=== PATIENT | female | born 1975 | race Caucasian/White ===

== ENCOUNTER → 2020-01-28 | Outpatient (CLI) | payer OTHER ==
[2020-01-28 12:42] LABS: Basophils # (A) 0.1 k/uL (0-0.2); Basophils % (A) 1 %; Eosinophils # (A) 0.4 k/uL (0-0.7); Eosinophils % (A) 7 %; HGB 15.6 gm/dL (11.4-16.0); Lymphocytes # (A) 1.9 k/uL (1.0-4.8); Lymphocytes % (A) 29 %; MCH 34.6 pg (25.0-35.0); MCHC 32.5 g/dL (31.0-37.0); MCV 106.6 fL (80.0-100.0); Macrocytosis Moderate; Mean Platelet Volume 10.2; Monocytes # (A) 0.3 k/uL (0-1.0); Monocytes % (A) 5 %; Neutrophils # (A) 3.8 k/uL (1.3-7.7); Neutrophils % (A) 58 %; Platelet Count 142 k/uL (150-450); RDW 13.4 % (11.5-15.5); WBC 6.6 k/uL (3.8-10.6)
[2020-01-28 13:07] LABS: Potassium 4.4 mmol/L (3.5-5.1)
== END | disposition home or self-care (01) ==
LOC: LABPAT 11:34
PROVIDERS: ATTEND Orthopaedic Surgery
DX: Z01.818 Encounter for other preprocedural examination (principal); M23.91 Unspecified internal derangement of right knee
CPT/HCPCS: 80051; 85025

== ENCOUNTER → 2020-01-31 | Day surgery (SDC) | payer OTHER ==
[2020-01-30 08:45] VITALS: BMI 32.4
--- NOTE | 2020-01-30 14:17 | HP ---
HISTORY AND PHYSICAL DATE OF SURGERY: 01/31/2020 Chanel Estrada is a 44-year-old patient seen with progressive right knee pain. We discussed options regarding treatment. She elected to proceed with arthroscopy. Consent was obtained. PAST MEDICAL HISTORY: Noncontributory. PAST SURGICAL HISTORY: Appendectomy, cholecystectomy, knee arthroscopy. DAILY MEDICATIONS: None. ALLERGIES: BACTRIM and SULFA. SOCIAL HISTORY: Smokes 1 pack of cigarettes daily. PHYSICAL EVALUATION OF THE RIGHT KNEE: Range of motion is 0-130. Mild effusion. Tenderness along the medial and lateral joint lines. Positive medial Juana's. Positive lateral Juana's. Ligaments stable. Hip rotation without pain. Distal neurovascular exam is intact. Right knee radiographs reveal mild osteoarthritis. IMPRESSION: 1. Internal derangement right knee with medial meniscal tear. 2. Right knee osteoarthritis. 3. Tobacco use. PLAN: Right knee arthroscopy with partial meniscectomy, partial synovectomy and debridement. MMODL / IJN: [id number] /
[~2020-01-31] MED LIST: BUPIVACAINE (PF) 0.25% 30 ML VIAL SQ ONE; CLINDAMYCIN 900 MG in DEXTROSE 5% IN WATER 50 ML IVPB ONE; DEXAMETHASONE SOD PHOSPHATE 10 MG/ML 1 ML VIAL IV ONE; LACTATED RINGERS 1,000 ML IV ONE; LACTATED RINGERS 1,000 ML IV SCH; LIDOCAINE 1% INJ 10MG/ML (20 ML MDV) ONE; MIDAZOLAM 2 MG/2 ML VIAL ONE; ONDANSETRON 4 MG/2 ML VIAL IVP ONE; PROPOFOL 10 MG/ML 20 ML VIAL IV ONE; SUCCINYLCHOLINE CHLORIDE 100 MG/5 ML SYR IV ONE; fentaNYL (PF) 50 MCG/ML 2 ML AMP ONE; oxyCODONE-APAP 5-325MG 1 EACH TAB PO ONE
--- NOTE | 2020-01-31 10:41 | P.OP ---
Date of Procedure: 01/31/20 Preoperative Diagnosis: Internal derangement right knee Postoperative Diagnosis: 1. Tear lateral meniscus right knee 2. 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 Grade 2 chondromalacia patella right knee 4. Reactive synovitis medial, lateral and suprapatellar compartments right knee Procedure(s) Performed: 1. Arthroscopic partial lateral meniscectomy right knee 2. Arthroscopic chondroplasty lateral femoral condyle right knee 3. Arthroscopic chondroplasty patella right knee 4. Arthroscopic partial synovectomy medial, lateral and suprapatellar compartments right knee Anesthesia: THERESAA, local Surgeon: Evangelista Paul Estimated Blood Loss (ml): 7 Pathology: none sent Condition: stable Disposition: PACU Indications for Procedure: 44-year-old patient seen with progressive right knee pain. After having treatment options discussed, she elected to proceed with arthroscopy. Operative Findings: See description of procedure Description of Procedure: Patient was taken to the operative suite. Patient underwent a general anesthetic by the department of anesthesia. Patient was given preoperative antibiotics. The right lower extremity was placed in a well-padded arthroscopic leg fisher. The right leg was prepped and draped in the normal sterile orthopedic fashion. A lateral parapatellar and suprapatellar incision was made. Trochars were inserted. Arthroscopy was initiated. Suprapatellar pouch revealed diffuse thick reactive synovitis. The patellofemoral joint appeared to articulate congruently. There was grade 2 chondromalacia of the patella with some small osteochondral tears present. The scope was guided into the medial gutter. No loose bodies or plica were identified. The scope was then guided into the medial compartment. A medial parapatellar incision was made. Trocar inserted followed by probe. The medial meniscus was probed and found to be stable. There was no significant chondromalacia. There was thick reactive synovitis anteriorly. I performed a partial synovectomy decompressing the thick reactive synovitis. There was good decompression of synovitis. Scope and probe were then guided into the intercondylar notch. Cruciates were identified, probed and found to be stable. The scope and probe were then guided into lateral compartment. There was a complex tear posterior horn medial meniscus extending into the midbody. There were grade 2 chondromalacia changes of the femoral condyle with some osteochondral flap tears. There was thick reactive synovitis anteriorly. I performed a partial meniscectomy. I performed a chondroplasty of the lateral femoral condyle. I performed a partial synovectomy decompressing thick reactive synovitis. The residual meniscus was stable. There was good decompression of synovitis. The residual osteochondral surface was stable. The scope was in guided back into the suprapatellar compartment. Used a motorized shaver into the super compartment. I debrided some piecemeal fragments of meniscus I encountered. I performed a chondroplasty of the patella. I performed a partial synovectomy. The residual osteochondral surface appeared stable. There was good decompression of synovitis. I took one more look on the entire knee, no residual debris. Instruments were now removed from the joint. The joint was infiltrated with .25% Marcaine. Steri-Strips were applied to the portal sites. Sterile dressings were applied. The patient was placed into a TEETEE hose. No tourniquet was utilized. The patient was awakened, transferred to a bed and taken to recovery stable satisfactory condition.
[2020-01-31 10:42] VITALS: TEMP 97.4
[2020-01-31] MEDS: HYDROmorphone 0.5 MG/0.5 ML SYRINGE IVP PRN ×3 (10:50→11:00)
[2020-01-31 11:08] VITALS: RESP 16
[2020-01-31 11:57] VITALS: BP 132/92; PULSE 66
--- NOTE | 2020-02-04 07:04 | CDI ---
Outpatient Documentation Clarification Form Date: 02/04/20 CDS/Shellacker Name: Dyan Williamson Phone: If any questions, call Tamra Martinez Manager New Product at [phone] Patient Name: Chanel Estrada Admit Date: 01/31/20 Discharge Date: 01/31/20 ATTENTION: The [facility] Coding Staff appreciate your assistance in clarifying documentation. Please respond to the clarification below the line at the bottom and electronically sign. The [facility] Coding staff will review the response and follow-up if needed. Please note: Queries are made part of the Legal Health Record. If you have any questions, please contact the Manager New Product. Dear Dr. Paul, Please provide clarification as to the particular meniscus on which the procedure was performed. The procedure note goes back and forth between the lateral and medial meniscus. Please clarify. Thank you for your kind consideration. I performed a partial lateral meniscectomy MTDD
== END | disposition home or self-care (01) ==
LOC: OR 07:56
PROVIDERS: ATTEND Orthopaedic Surgery
DX: S83.281A Other tear of lateral meniscus, current injury, right knee, initial encounter (principal); X58.XXXA Exposure to other specified factors, initial encounter; M22.41 Chondromalacia patellae, right knee; M65.861 Other synovitis and tenosynovitis, right lower leg; M17.11 Unilateral primary osteoarthritis, right knee; Z90.49 Acquired absence of other specified parts of digestive tract; Z98.890 Other specified postprocedural states; Z88.2 Allergy status to sulfonamides; F17.210 Nicotine dependence, cigarettes, uncomplicated; I25.2 Old myocardial infarction; E78.49 Other hyperlipidemia; J45.909 Unspecified asthma, uncomplicated; K21.9 Gastro-esophageal reflux disease without esophagitis; Z79.891 Long term (current) use of opiate analgesic; Z88.1 Allergy status to other antibiotic agents; Z91.040 Latex allergy status; Z88.5 Allergy status to narcotic agent; Z88.0 Allergy status to penicillin; Z88.8 Allergy status to other drugs, medicaments and biological substances; Z91.018 Allergy to other foods
CPT/HCPCS: 81025; 29881; J2250; J1100; J2405; J2001; J3010; J0330; J2704; J1170

== ENCOUNTER → 2020-07-08 | Outpatient (CLI) | payer OTHER ==
--- NOTE | 2020-07-08 08:46 | XR ---
EXAMINATION TYPE: XR cervical spine comp DATE OF EXAM: 07/08/2020 COMPARISON: 03/21/2014 HISTORY: Pain TECHNIQUE: Four views are submitted. FINDINGS: The odontoid is intact. There are no compression deformities. The prevertebral soft tissue structur es are within normal limits. Hypertrophic spurring at C5-C6 and C6-C7 with degenerative disc disease . Slight retrolisthesis of C4 relative to C5. IMPRESSION: 1. Multilevel hypertrophic and degenerative change
== END | disposition home or self-care (01) ==
LOC: RADXRMAIN 08:07
PROVIDERS: ATTEND Internal Medicine
DX: M47.812 Spondylosis without myelopathy or radiculopathy, cervical region (principal)
CPT/HCPCS: 72050

== ENCOUNTER → 2020-09-29 | Outpatient (CLI) | payer OTHER ==
--- NOTE | 2020-09-29 11:01 | US ---
EXAMINATION TYPE: US pelvis complete transvag DATE OF EXAM: 09/29/2020 COMPARISON: NONE CLINICAL HISTORY: 45-year-old female R10.2 female pelvic pain. Patient states her doctor told her kalli t her uterus was torn TECHNIQUE: Transabdominal sonographic images of the pelvis were acquired. Transvaginal sonographic i mages were medically necessary to better assess the following anatomy: Uterus Date of LMP: Unsure FINDINGS: EXAM MEASUREMENTS: Uterus: 6.8 x 2.9 x 2.7 cm Endometrial Stripe: 0.3 cm Right Ovary: 1.6 x 1.5 x 1.7 cm Left Ovary: 2.4 x 1.6 x 1.5 cm 1. Uterus: Anteverted. The myometrium is mildly heterogeneous. Rounded cystic area along the left f undus measuring 1.3 x 1.5 x 1.4 cm. In addition, there is an ovoid hypoechoic area along the right ut erine fundus measuring 2.0 x 1.0 x 2.0 cm 2. Endometrium: Unable to visualize transvaginally . 3. Right Ovary: wnl 4. Left Ovary: Follicle visualized, wnl 5. Bilateral Adnexa: wnl 6. Posterior cul-de-sac: wnl IMPRESSION: 1. A 1.5 cm round cystic area along the left uterine fundus. Unable to clearly determine if this is l ocated within the uterus itself or if it represents a cyst within the left adnexa such as a paraovari an cyst. 2. An ovoid 2.0 x 1.0 cm hypoechoic area within the right uterine fundus. As the endometrium is poorl y delineated, correlate for history of prior endometrial ablation, in which case, this could represen t an area of focal hematometra from incomplete ablation. Consider female pelvic MRI to further evalu ate this and the above cystic area. Consider DIRECTOR OF OCCUPATIONAL HEALTH referral. 3. Normal follicular change in the ovaries.
== END | disposition home or self-care (01) ==
LOC: RADUSWWP 08:53
PROVIDERS: ATTEND Internal Medicine
DX: N85.8 Other specified noninflammatory disorders of uterus (principal); Z88.1 Allergy status to other antibiotic agents; Z88.6 Allergy status to analgesic agent; Z88.5 Allergy status to narcotic agent; Z91.040 Latex allergy status
CPT/HCPCS: 76830; 76856

== ENCOUNTER → 2020-11-27 | Outpatient (CLI) | payer OTHER ==
--- NOTE | 2020-11-28 04:42 | MR ---
EXAMINATION TYPE: MR pelvis wo con DATE OF EXAM: 11/27/2020 COMPARISON: None HISTORY: Lower abd pain into pelvis History of cervical cancer. Previous surgery. Multiplanar multiecho imaging of the pelvis was performed without contrast. Bladder distends smoothly. Uterus is anteverted. There is 1.3 cm area of rounded fluid signal in the uterine fundus in the myometrium that could be a cyst and is probably not changed compared to the old CT scan of 12/13/2011. I see no endometrial mass. Vaginal vault is intact. Cervical canal is intact. There is tiny amount of free fluid in the pelvis. There is no adnexal mass. The bowel does not appear dilated. There is no evidence of inguinal hernia. The proximal femurs and hip joints are intact. The re is no hip dysplasia. There is no sign of avascular necrosis. There is metal artifact from apparent surgery at the lumbar spine at the L4-5 level on the left side. There is some narrowing of the L5-S1 disc space with decreased signal in the disks. The sacroiliac joints appear intact. There is 1.7 cm area of rounded increased signal in the S2 vertebral body. This is not characterized or visualized on the STIR images on the T1 images. This is of doubtful significance. IMPRESSION: There is small amount of fluid in the pelvis. No pelvic mass. No definite sign of recurrent tumor.
== END | disposition home or self-care (01) ==
LOC: RADMRIMAIN 09:19
PROVIDERS: ATTEND Obstetrics & Gynecology
DX: R10.30 Lower abdominal pain, unspecified (principal)
CPT/HCPCS: 72195

== ENCOUNTER 2021-09-11 15:57 | Emergency (ER) | payer OTHER ==
[2021-09-11] MEDS ORDERED: HYDROmorphone 1 MG/ML 1 ML SYRINGE IVP STA ×2 (16:22→17:12)
[2021-09-11] MEDS ORDERED: ONDANSETRON 4 MG/2 ML VIAL IVP STA (16:22)
--- NOTE | 2021-09-11 16:35 | ED ---
Lower Extremity Injury HPI - General Chief Complaint: Extremity Injury, Lower Stated Complaint: Fall/IHS/Foot injury Time Seen by Provider: 09/11/21 16:13 Source: patient, RN notes reviewed Mode of arrival: wheelchair Limitations: no limitations - History of Present Illness Initial Comments: This is a pleasant 46-year-old female who presents to emergency department after injuring her ankle yesterday with a slip and fall at work. [facility] and had a fracture in 2 spots. Patient had an OCL splint placed. Patient elevated her leg yesterday but went to work today. Patient now complaining of tingling and burning sensation to her toes were discolored toes. Patient also complaining of increased pain to her ankle area. Patient contacted the follow-up orthopedic physician at Dr. Simpson's office and was advised to come to this facility because we have a "video conference specialist." No headache, no fever or chills, no changes in vision or hearing, no sore throat or difficulty with speech, no neck pain, no chest pain or shortness of breath, no abdominal pain, no nausea or vomiting, no changes in urination or bowel movements, no numbness or tingling, no extremity pain, no skin rashes or lesions. MD Complaint: ankle injury - Related Data Home Medications Medication Instructions Recorded Confirmed Naloxone [Narcan] 1 spray NASAL ONCE PRN 09/11/21 09/11/21 oxyCODONE-APAP 7.5-325MG [Percocet 1 tab PO Q6HR PRN 09/11/21 09/11/21 7.5-325 mg] Allergies Allergy/AdvReac Type Severity Reaction Status Date / Time amitriptyline Allergy Hallucinati Verified 09/11/21 18:19 ons amoxicillin Allergy Swelling Verified 09/11/21 18:19 cephalexin monohydrate Allergy Rash/Hives Verified 09/11/21 18:19 [From Keflex] codeine Allergy Swelling Verified 09/11/21 18:19 latex Allergy Rash/Hives Verified 09/11/21 18:19 methadone Allergy Swelling Verified 09/11/21 18:19 morphine Allergy Chest Pain Verified 09/11/21 18:19 Penicillins Allergy Rash/Hives Verified 09/11/21 18:19 pregabalin [From Lyrica] Allergy Rash/Hives Verified 01/21/22 18:19 Sulfa (Sulfonamide Allergy Rash/Hives Verified 09/11/21 18:19 Antibiotics) mushrooms Allergy Anaphylaxis Uncoded 09/11/21 16:02 Review of Systems ROS Statement: Those systems with pertinent positive or pertinent negative responses have been documented in the HPI. ROS Other: All systems not noted in ROS Statement are negative. Past Medical History Past Medical History: Asthma, Hyperlipidemia, Myocardial Infarction (CT), Thyroid Disorder Additional Past Medical History / Comment(s): chronic back pain, degenerative disc disease, uses medical marijuana Last Myocardial Infarction Date:: 2012 History of Any Multi-Drug Resistant Organisms: None Reported Past Surgical History: Appendectomy, Back Surgery, Breast Surgery, Cholecystectomy, Orthopedic Surgery, Tonsillectomy, Tubal Ligation Past Anesthesia/Blood Transfusion Reactions: No Reported Reaction Past Psychological History: Anxiety, Depression Smoking Status: Current every day smoker Past Alcohol Use History: None Reported, Rare Past Drug Use History: Marijuana - Past Family History Mother Family Medical History: No Reported History General Exam - General Exam Comments Initial Comments: Patient in significant distress secondary to right ankle pain Limitations: no limitations General appearance: alert, in distress Head exam: Present: atraumatic, normocephalic, normal inspection Eye exam: Present: normal appearance, PERRL, EOMI. Absent: scleral icterus, conjunctival injection, periorbital swelling ENT exam: Present: normal exam, mucous membranes moist Neck exam: Present: normal inspection. Absent: tenderness, meningismus, lymphadenopathy Respiratory exam: Present: normal lung sounds bilaterally. Absent: respiratory distress, wheezes, rales, rhonchi, stridor Cardiovascular Exam: Present: regular rate, normal rhythm, normal heart sounds. Absent: systolic murmur, diastolic murmur, rubs, gallop, clicks GI/Abdominal exam: Present: soft, normal bowel sounds. Absent: distended, tenderness, guarding, rebound, rigid Extremities exam: Present: full ROM, other (Refill 3-4 seconds. Pedal pulses are palpable. Sensation is intact to light touch and pinprick--regarding the right lower extremity, ankle, foot. No break in skin integrity). Absent: normal inspection, tenderness, pedal edema, joint swelling, calf tenderness Back exam: Present: normal inspection Neurological exam: Present: alert, oriented X3, CN II-XII intact Psychiatric exam: Present: normal affect, normal mood, anxious Skin exam: Present: warm, dry, intact, normal color. Absent: rash Course Vital Signs 09/11/21 16:02 Temperature 98.3 F Pulse Rate 118 H Respiratory 20 Rate Blood Pressure 131/79 O2 Sat by Pulse 97 Oximetry - Reevaluation(s) Reevaluation #1: 09/11/21 17:19 No headache, no fever or chills, no changes in vision or hearing, no sore throat or difficulty with speech, no neck pain, no chest pain or shortness of breath, no abdominal pain, no nausea or vomiting, no changes in urination or bowel movements, no numbness or tingling, no extremity pain, no skin rashes or lesions. Procedures - Orthopedic Splinting/Casting Injury #1 Side: right Lower Extremity Injury Location: long leg, ankle Lower Extremity Immobilizer: posterior splint, stirrup splint Other Orthopedic Equipment: crutches Additional Comments: Neurovascular status was intact both pre-and post-application. I did remove the splint from the previous facility. Doppler pulses were intact both dorsalis pedis and posterior tibial. Capillary refill less than 2 seconds. Distal sensation intact. Medical Decision Making - Medical Decision Making Patient has adequate capillary refill with capillary refill between 3 and 4 seconds to the right toes. Sensation is intact although she does have subjective dysesthesia. Pulses are palpated. I did remove the OCL splint. We'll obtain x-rays, lab work, and provide pain medications. We'll obtain pulses by Doppler. - Lab Data Result diagrams: 09/11/21 16:38 09/11/21 16:38 Lab Results 09/11/21 09/11/21 Range/Units 16:38 16:38 WBC 10.9 H (3.8-10.6) k/uL RBC 4.21 (3.80-5.40) m/uL Hgb 14.5 (11.4-16.0) gm/dL Hct 44.7 (34.0-46.0) % MCV 106.2 H (80.0-100.0) fL MCH 34.4 (25.0-35.0) pg MCHC 32.4 (31.0-37.0) g/dL RDW 13.5 (11.5-15.5) % Plt Count 161 (150-450) k/uL MPV 9.6 Neutrophils % 65 % Lymphocytes % 26 % Monocytes % 5 % Eosinophils % 3 % Basophils % 0 % Neutrophils # 7.0 (1.3-7.7) k/uL Lymphocytes # 2.8 (1.0-4.8) k/uL Monocytes # 0.5 (0-1.0) k/uL Eosinophils # 0.3 (0-0.7) k/uL Basophils # 0.0 (0-0.2) k/uL Macrocytosis Moderate Sodium 138 (137-145) mmol/L Potassium 3.8 (3.5-5.1) mmol/L Chloride 104 (98-107) mmol/L Carbon Dioxide 28 (22-30) mmol/L Anion Gap 6 mmol/L BUN 19 H (7-17) mg/dL Creatinine 0.77 (0.52-1.04) mg/dL Est GFR (CKD-EPI)AfAm >90 (>60 ml/min/1.73 sqM) Est GFR (CKD-EPI)NonAf >90 (>60 ml/min/1.73 sqM) Glucose 97 (74-99) mg/dL Calcium 9.2 (8.4-10.2) mg/dL Total Bilirubin 0.6 (0.2-1.3) mg/dL AST 34 (14-36) U/L ALT 32 (4-34) U/L Alkaline Phosphatase 88 (38-126) U/L Creatine Kinase 214 H (30-135) U/L Total Protein 7.0 (6.3-8.2) g/dL Albumin 4.2 (3.5-5.0) g/dL Disposition Clinical Impression: Closed trimalleolar fracture of right ankle Disposition: HOME SELF-CARE Instructions (If sedation given, give patient instructions): Ankle Fracture (ED), Splint Care (ED), Crutch Instructions (ED) Additional Instructions: Call the orthopedic physician first thing Tuesday morning for follow-up appointment. Elevate as much as possible. Keep the splint on. No weightbearing until clearance by orthopedics. Patient was told to return to the ER for any signs or symptoms worsen. Told to return immediately if any other problems arise. All questions answered. Treatment plan discussed. Patient in agreement Is patient prescribed a controlled substance at d/c from ED?: No Referrals: Linda Aldana MD [Primary Care Provider] - 1-2 days Grey Hernandez MD [Medical Doctor] - 09/14/21 8:00 am
[2021-09-11 16:39] VITALS: RESP 20
[2021-09-11 16:41] LABS: Basophils % (A) 0 %; Eosinophils # (A) 0.3 k/uL (0-0.7); Eosinophils % (A) 3 %; HCT 44.7 % (34.0-46.0); HGB 14.5 gm/dL (11.4-16.0); Lymphocytes # (A) 2.8 k/uL (1.0-4.8); Lymphocytes % (A) 26 %; MCH 34.4 pg (25.0-35.0); MCHC 32.4 g/dL (31.0-37.0); MCV 106.2 fL (80.0-100.0); Macrocytosis Moderate; Mean Platelet Volume 9.6; Monocytes # (A) 0.5 k/uL (0-1.0); Monocytes % (A) 5 %; Neutrophils % (A) 65 %; Platelet Count 161 k/uL (150-450); RBC 4.21 m/uL (3.80-5.40); RDW 13.5 % (11.5-15.5); WBC 10.9 k/uL (3.8-10.6)
[2021-09-11 16:49] LABS: ALT 32 U/L (4-34); AST 34 U/L (14-36); African American GFR (CKD) >90 (>60 ml/min/1.73 sqM); Albumin 4.2 g/dL (3.5-5.0); Alkaline Phosphatase 88 U/L (38-126); Anion Gap 6 mmol/L; Blood Urea Nitrogen 19 mg/dL (7-17); Calcium 9.2 mg/dL (8.4-10.2); Carbon Dioxide 28 mmol/L (22-30); Chloride 104 mmol/L (98-107); Creatine Kinase 214 U/L (30-135); Glucose 97 mg/dL (74-99); Non-African American GFR(CKD) >90 (>60 ml/min/1.73 sqM); Potassium 3.8 mmol/L (3.5-5.1); Sodium 138 mmol/L (137-145); Total Bilirubin 0.6 mg/dL (0.2-1.3)
--- NOTE | 2021-09-11 17:03 | XR ---
EXAMINATION TYPE: XR tibia fibula RT DATE OF EXAM: 09/11/2021 COMPARISON: None HISTORY: Ankle pain TECHNIQUE: 3 views FINDINGS: There is transverse fracture of the medial malleolus. There is 3 mm lateral displacement of the fragment. There is oblique fracture of the distal fibula. There is mild lateral subluxation of t he talus. IMPRESSION: Bimalleolar fracture of the ankle with mild lateral displacement of the talus. No old exa m available for comparison. Fracture appears relatively acute.
[2021-09-11] MEDS ORDERED: SODIUM CHLORIDE 0.9% 1,000 ML IV ONE (17:04)
--- NOTE | 2021-09-11 17:05 | XR ---
EXAMINATION TYPE: XR ankle complete RT DATE OF EXAM: 09/11/2021 COMPARISON: NONE HISTORY: Pain TECHNIQUE: 3 views FINDINGS: There is lateral displacement of the talus 4 mm. There is 3 mm lateral displacement of the fractured medial malleolus. There is oblique fracture through the distal fibula. There is probably a nondisplaced posterior malleolus fracture. There is no dislocation. There is soft tissue swelling vesta und the ankle. IMPRESSION: Trimalleolar fracture of the ankle with mild lateral displacement of the talus. No old ex am available for comparison. Fractures appear relatively acute.
[2021-09-11] MEDS ORDERED: LORazepam 2 MG/ML INJ IV STA (17:19)
[2021-09-11 18:57] VITALS: BP 128/78; PULSE 94; TEMP 98
== END 2021-09-11 18:56 | disposition home or self-care (01) ==
LOC: EC 15:57
DX: S82.851A Displaced trimalleolar fracture of right lower leg, initial encounter for closed fracture (principal); J45.909 Unspecified asthma, uncomplicated; I21.9 Acute myocardial infarction, unspecified; F17.200 Nicotine dependence, unspecified, uncomplicated; Z91.018 Allergy to other foods; Z88.1 Allergy status to other antibiotic agents; Z88.0 Allergy status to penicillin; Z91.040 Latex allergy status; Z88.5 Allergy status to narcotic agent; Z88.2 Allergy status to sulfonamides; Z88.8 Allergy status to other drugs, medicaments and biological substances; X58.XXXA Exposure to other specified factors, initial encounter
CPT/HCPCS: 29505; 99283; 96374; 96375; 96376; 36415; 80053; 82550; 85025; 73590; 73610; J2060; J2405; J1170

== ENCOUNTER → 2021-09-18 | Outpatient (CLI) | payer OTHER ==
--- NOTE | 2021-09-18 13:03 | CT ---
EXAMINATION TYPE: CT ankle RT wo con DATE OF EXAM: 09/18/2021 COMPARISON: Radiographs 09/11/2021 HISTORY: 46-year-old female M25.571, fall, Rt ankle pain TECHNIQUE: Contiguous axial scanning of the right ankle without IV contrast. Coronal and sagittal rec onstructions performed. 3-D reconstructions generated on a dedicated independent workstation. CT DLP: 193 mGycm Automated exposure control for dose reduction was used. FINDINGS: Overlying plaster cast. Generalized soft tissue swelling. There is redemonstration of unstable trimalleolar ankle fracture: The posterior malleolus fracture shows comminution along its superior and inferior margin. The commin ution inferiorly is characterized by 5 mm and smaller bone fragments interposed at the articular defe ct and some adjacent tiny 2 mm loose bodies extending into the posterior aspect of the medial tibiota lar joint. There is minimal 2 mm of articular surface impaction. Medially, the posterior tibial tendo n abuts the fracture margin but does not show any abnormal thickening. The medial malleolus fracture is characterized as a transverse fracture with 7 mm of distraction. The distal fibular fracture is obliquely oriented with 5 mm of lateral displacement and up to 1.1 cm of posterior displacement. There is secondary lateral subluxation at the tibiotalar joint. There is a 6 mm corticated bone fragment adjacent to the lateral talar process at the expected ATFL i nsertion. There is diffuse soft tissue thickening along the expected course of the ATFL. This could r epresent acute on chronic ligamentous sprain. Additional corticated bone fragments measuring up to 7 mm may relate to old injuries at the site of s ome plantar ligaments or one of the spring ligaments. Bony irregularity along the anterior calcaneal process has a chronic appearance suggesting sequela of remote injury. Technique type I accessory navicular. Subtalar joint is aligned. Small delineation of the Achilles tendon. IMPRESSION: 1. UNSTABLE TRIMALLEOLAR ANKLE FRACTURES DETAILED ABOVE. 2. 6 MM CORTICATED BONE FRAGMENT ADJACENT TO THE LATERAL TALAR PROCESS. GIVEN DIFFUSE SOFT TISSUE THI CKENING ALONG THE EXPECTED COURSE OF THE ATFL, THESE FINDINGS COULD REPRESENT ACUTE ON CHRONIC LIGAME NTOUS SPRAIN. 3. SMALL CORTICATED BONE FRAGMENTS MEASURING UP TO 7 MM JUST MEDIAL TO THE DISTAL CALCANEUS COULD REP RESENT SEQUELA OF OLD INJURY TO SOME OF THE PLANTAR LIGAMENTS OR ONE OF THE LESSER SPRING LIGAMENTS. 4. CORRESPONDING BONY IRREGULARITY ALONG THE ANTERIOR CALCANEAL PROCESS ALSO HAS A CHRONIC APPEARANCE LIKELY RELATING TO REMOTE INJURY.
== END | disposition home or self-care (01) ==
LOC: RADCTMAIN 10:08
PROVIDERS: ATTEND Orthopaedic Surgery
DX: S82.851A Displaced trimalleolar fracture of right lower leg, initial encounter for closed fracture (principal); X58.XXXA Exposure to other specified factors, initial encounter

== ENCOUNTER 2021-09-25 11:00 | Day surgery (SDC) | payer OTHER ==
[2021-09-23 11:37] VITALS: BMI 28.6
[~2021-09-25 11:00] MED LIST changes: -BUPIVACAINE (PF) 0.25% 30 ML VIAL SQ ONE; -CLINDAMYCIN 900 MG in DEXTROSE 5% IN WATER 50 ML IVPB ONE; -DEXAMETHASONE SOD PHOSPHATE 10 MG/ML 1 ML VIAL IV ONE; +DEXAMETHASONE SOD PHOSPHATE 4 MG/ML 1 ML VIAL IV ONE; -LACTATED RINGERS 1,000 ML IV ONE; -LIDOCAINE 1% INJ 10MG/ML (20 ML MDV) ONE; +MIDAZOLAM 2 MG/2 ML VIAL IV PRN; -MIDAZOLAM 2 MG/2 ML VIAL ONE; -PROPOFOL 10 MG/ML 20 ML VIAL IV ONE; +SCOPOLAMINE 1.5MG/72HR PATCH TRANSDERM ONE; -SUCCINYLCHOLINE CHLORIDE 100 MG/5 ML SYR IV ONE; +fentaNYL (PF) 50 MCG/ML 2 ML AMP IV PRN; -fentaNYL (PF) 50 MCG/ML 2 ML AMP ONE; -oxyCODONE-APAP 5-325MG 1 EACH TAB PO ONE
[2021-09-25] MEDS ORDERED: MIDAZOLAM 2 MG/2 ML VIAL IVP ONE (12:33)
--- NOTE | 2021-09-25 12:35 | P.PN ---
Progress Note - Text Progress Note Date: 09/25/21 The patient was seen in pre-operative holding and her injured ankle was evaluated. Her splint was taken down and there was wrinkling of the skin and resolved fracture blisters. The skin over the medial and lateral malleoli appeared to be ready for surgery. We will proceed with surgery. She is down to 4 cigarettes per day and was strongly encouraged to quit and we reviewed that she was at a higher risk of having a complication.
--- NOTE | 2021-09-25 12:53 | P.ANPRN ---
Procedure Note - Anesthesia - Nerve Block Performed Right Adductor Canal Single Time Out Performed: Yes Date of Procedure: 09/25/21 Procedure Start Time: 12:33 Procedure Stop Time: 12:37 Location of Patient: PreOp Indication: Acute Post-Operative Pain, Requested by Surgeon Sedation Type: Sedate with meaningful contact maintained Preparation: Sterile Prep, Sterile Dressing Position: Supine Catheter: None Needle Types: Pajunk Needle Gauge: 20 Ultrasound used to visualize needle placement: Yes Ultrasound used to observe medication spread: Yes Injectate: 0.5% Ropivacaine (see comment for volume) (15 ml + decadron 4 mg) Blood Aspirated: No Pain Paresthesia on Injection Noted: No Resistance on Injection: Normal Image Stored and Saved: Yes Events: Uneventful and Well Tolerated Right Popliteal Single Time Out Performed: Yes Date of Procedure: 09/25/21 Procedure Start Time: 12:38 Procedure Stop Time: 12:47 Location of Patient: PreOp Indication: Acute Post-Operative Pain, Requested by Surgeon Sedation Type: Sedate with meaningful contact maintained Preparation: Sterile Prep, Sterile Dressing Position: Supine Catheter: None Needle Types: Pajunk Needle Gauge: 20 Ultrasound used to visualize needle placement: Yes Ultrasound used to observe medication spread: Yes Injectate: 0.5% Ropivacaine (see comment for volume) (15 ml + decadron 4 mg) Blood Aspirated: No Pain Paresthesia on Injection Noted: No Resistance on Injection: Normal Image Stored and Saved: Yes Events: Uneventful and Well Tolerated
[2021-09-25] MEDS ORDERED: GLYCOPYRROLATE 0.2 MG/ML 2 ML VIAL ONE (13:00)
[2021-09-25] MEDS ORDERED: DEXAMETHASONE SOD PHOSPHATE 4 MG/ML 1 ML VIAL ONE (13:00)
[2021-09-25] MEDS ORDERED: NEOSTIGMINE 1 MG/ML 10 ML VIAL ONE (13:00)
[2021-09-25] MEDS ORDERED: ROCURONIUM 10 MG/ML (5 ML VIAL) IV ONE (13:00)
[2021-09-25] MEDS ORDERED: PROPOFOL 10 MG/ML 20 ML VIAL IV ONE (13:00)
[2021-09-25] MEDS ORDERED: fentaNYL (PF) 50 MCG/ML 2 ML AMP ONE (13:00)
[2021-09-25] MEDS ORDERED: ROPIVACAINE 5 MG/ML 30 ML VIAL ONE (13:00)
[2021-09-25] MEDS ORDERED: LIDOCAINE 1% INJ 10MG/ML (20 ML MDV) ONE (13:00)
[2021-09-25] MEDS ORDERED: MIDAZOLAM 2 MG/2 ML VIAL ONE (13:00)
[2021-09-25] MEDS ORDERED: SUCCINYLCHOLINE CHLORIDE 100 MG/5 ML SYR IV ONE (13:00)
[2021-09-25] MEDS ORDERED: HYDROmorphone 0.5 MG/0.5 ML SYRINGE IVP ONE ×2 (14:07→15:17)
--- NOTE | 2021-09-25 14:40 | FL ---
Fluoroscopy HISTORY: Fracture 53 seconds fluoroscopy time supplied to the referring clinician. 6 intraoperative C-arm images docum ent the procedure. See dictated report from orthopedic surgery.
[2021-09-25 15:14] VITALS: TEMP 97
[2021-09-25] MEDS ORDERED: LACTATED RINGERS 1,000 ML IV ONE (15:53)
[2021-09-25 15:56] VITALS: RESP 18
--- NOTE | 2021-09-25 16:31 | P.OP ---
Date of Procedure: 09/25/21 Preoperative Diagnosis: 1. Right trimalleolar ankle fracture dislocation 2. Current every day cigarette smoker Postoperative Diagnosis: Same Procedure(s) Performed: 1. Open reduction and internal fixation of right trimalleolar ankle fracture (open reduction and internal fixation lateral medial malleolus, nonoperative management posterior malleolus) 2. Manual application of joint stress for radiography by physician, right ankle 3. Application of short leg splint by physician, right ankle Anesthesia: ANNA Surgeon: Grey Hernandez Senior Back End Java Developer #1: Sydnie Park Estimated Blood Loss (ml): 20 IV fluids (ml): 1,200 Pathology: none sent Condition: stable Disposition: PACU Indications for Procedure: The patient is very pleasant 46-year-old female with a medical history significant for smoking who fell at work and sustained a closed right trimalleolar ankle fracture. The patient was seen at [facility] where an attempt at closed reduction and splinting was performed. She was given follow- up with the on-call and plate physician at [facility] Dr. Luis M Simpson. Despite being on-call and responsible for trauma care at [facility] Dr. Simpson was out of the country. Dr. Simpson's PA spoke with the patient and told the patient that Dr. Simpson he was out of the country for 2 weeks and told her to come to our office as we could provide care for her. I met with the patient preoperatively in the office to discuss her injury and that I would be happy to take care of her. I had a long discussion with the patient preoperatively in the preoperative holding area. They have a displaced ankle fracture which requires open reduction and internal fixation. We discussed the potential risks and complications of ankle fracture surgery at length. Risks discussed included but are not limited to risks from anesthesia, superficial infection, deep infection, nonunion, malunion, malreduction of the ankle mortise or syndesmosis, damage to local blood vessels or nerves particularly branches of the superficial peroneal nerve, saphenous nerve, and or sural nerve, hardware failure, loss of reduction of the ankle mortise or syndesmosis due to hardware failure, symptomatic hardware, delayed wound healing, wound necrosis, posttraumatic ankle arthritis, stiffness, instability, intra-articular pathology requiring further treatment, need for further surgery, an inability to regain preinjury level of function, dissatisfaction with surgical outcome, DVT, PE, pressure sore, splint complications, and possibly loss of life or limb. The patient understands that while these are the most common complications there are other less common complications possible. They provided their verbal and written consent to go forward with ankle open reduction and internal fixation. All of their questions regarding the procedure and potential complications were answered. Description of Procedure: The patient is in for in preoperative holding and the correct right leg was marked with my initials. I took down the splint was wrinkling of the skin and healed fracture blisters. I discussed the procedure at length with the patient. A block was placed by anesthesia. The patient was then brought back to the operating room. She was positioned on the OR table where general anesthetic and preoperative antibiotics were given. The tourniquet was applied to the proximal aspect of the right leg. A ramp was placed under the right leg to facilitate intraoperative imaging. The left leg was secured to the table with foam and tape. Nonsterile drapes were applied. A pre-scrub was performed with a chlorhexidine scrub brush from the scrub sink. The right leg was then prepped and draped in the standard sterile fashion. Prior to starting surgery timeout was performed identifying the correct patient, operative extremity, and procedure. The patient's leg was then elevated, exsanguinated with an Esmarch bandage, and the tourniquet was inflated to 250 mmHg. I began by making a straight lateral incision to the distal fibula. Skin incision was made with a scalpel and dissection was carried down carefully through subcu tissue with tenotomy scissors. The periosteum over the fibula and the fascia over the peroneal muscles were incised sharply in line with the skin incision. The fracture site was identified, debrided, and reduced. The reduction was held with srmlc-ua-xigkh reduction clamps. It was verified with fluoroscopy. A 2.7 mm lag screw was then placed across the fracture generating excellent compression. A precontoured distal fibular locking plate was then placed over the distal fibula and its position was verified with fluoroscopy. Nonlocking 3.5 mm screws were placed proximally and distally to the fracture bringing the plate down nicely to bone. An additional 2 nonlocking 3.5 mm screws were placed proximally and four 3.5 mm locking screws were placed distally. The reduction in place plate meant were verified with fluoroscopy and orthogonal views. Attention was then turned to the medial malleolus. A longitudinal incision was made with scalpel. Dissection was carried down to the fracture site. The fracture site was booked open and debrided. It was held reduced with a ucnmr-ir-pzpyu reduction clamp. Due to the size of the fragment a single 2.7 mm screw was placed across the fragment holding it nicely reduced. Fluoroscopy was brought in and showed anatomic reduction of the mortise. A manual external rotation stress x-ray was performed and showed no widening of the medial clear space or incisura. I interpreted this as a stable ankle not requiring syndesmotic fixation. A true lateral was then obtained and showed no posterior subluxation of the talus and a well reduced posterior malleolus fracture. I elected to manage the posterior malleolus nonoperatively. With the medial lateral wound with then thoroughly irrigated and closed in layers. The skin incision was reinforced with 3-0 nylon due to the patient's smoking history. Sterile dressings were applied followed by well-padded bulky [place] splint with the ankle at neutral. The patient was then awoken from her anesthetic, transferred to a rney, and brought to recovery having tolerated the procedure well. Sydnie Park PA-C was required as a skilled social media assistant for patient positioning, retraction, exposure, placement of hardware, closure of wound. Plan: The patient can discharge home as an outpatient. She is to remain strictly nonweightbearing on her right leg. She will receive aspirin 81 mg twice a day for DVT prophylaxis. Pain medications will be prescribed. She will need follow-up in the office in 2 weeks for splint removal and nonweightbearing x-rays of the ankle (3 views)
[2021-09-25 16:41] VITALS: BP 120/67; PULSE 75
== END 2021-09-25 16:53 | disposition home or self-care (01) ==
LOC: OR 11:00
PROVIDERS: ATTEND Orthopaedic Surgery
DX: S82.851A Displaced trimalleolar fracture of right lower leg, initial encounter for closed fracture (principal); F17.210 Nicotine dependence, cigarettes, uncomplicated
CPT/HCPCS: 27822; 73600; J2250; J1100; J2710; J0690; J2405; J2001; J3010; J2795; J0330; J2704; J1170

== ENCOUNTER → 2022-03-08 | Outpatient (CLI) | payer OTHER ==
--- NOTE | 2022-03-08 10:36 | USB ---
Reason for Exam: Clinical finding. Risk Values: Viktoria 5 year model risk: 0.5%. NCI Lifetime model risk: 6.5%. Technique: Method: Whole Breast Handheld. Findings: The whole breast of the right breast, the axilla of the right breast and the retroareolar of the right breast were scanned. No solid or cystic masses are identified.. Overall Assessment: Negative, BI-RAD 1 Electronically signed and approved by: Yvan Graves M.D. Radiologis
== END | disposition home or self-care (01) ==
LOC: RADUSWWP 09:47
PROVIDERS: ATTEND Family Medicine
DX: Z12.31 Encounter for screening mammogram for malignant neoplasm of breast (principal); N64.4 Mastodynia

== ENCOUNTER → 2023-01-31 | Outpatient (CLI) | payer OTHER ==
--- NOTE | 2023-02-02 13:17 | MM ---
Reason for Exam: Clinical finding. Last mammogram was performed 6 year(s) and 10 month(s) ago. Indicated Problems: Non-bloody discharge of the right side (Green) for 1 Year(s). Pain of the right side (Focal) for 7 Year(s). Patient History: Menarche at age 13. First Full-Term at age 22. Postmenopausal. 2016, Benign Excisional Biopsy on the right side. Risk Values: Viktoria 5 year model risk: 1.3%. NCI Lifetime model risk: 11.3%. Prior Study Comparison: 03/23/2016 Bilateral Diagnostic Mammogram, [facility]. Tissue Density: The breast tissue is almost entirely fat. Findings: Analyzed By CAD. No concerning mass or distortion. No suspicious calcifications. Overall Assessment: Negative, BI-RAD 1 Management: Screening Mammogram of both breasts in 1 year. . Results were given to the patient verbally at the time of exam. Patient should continue monthly self-breast exams. A clinical breast exam by your physician is recommended on an annual basis. This exam should not preclude additional follow-up of suspicious palpable abnormalities. Note on Viktoria scores and lifetime risk: 1. A Viktoria score greater than 3% is considered moderate risk. If this is the case, consider specialist referral to assess eligibility for a risk reducing agent. 2. If overall lifetime risk for the development of breast cancer is 20% or higher, the patient may qualify for future screening with alternating mammogram and breast MRI. Electronically signed and approved by: Yvan Graves M.D. Radiologis
== END | disposition home or self-care (01) ==
LOC: RADMAMWWP 07:44
PROVIDERS: ATTEND Family Medicine
DX: N64.4 Mastodynia (principal); Z78.0 Asymptomatic menopausal state
CPT/HCPCS: 77066; G0279; 77062

== ENCOUNTER 2023-08-03 14:26 | Emergency (ER) | payer OTHER ==
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
[2023-08-03 15:01] VITALS: RESP 18
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
--- NOTE | 2023-08-03 16:23 | XR ---
EXAMINATION TYPE: XR chest 2V DATE OF EXAM: 08/03/2023 COMPARISON: 12/06/2012 HISTORY: Chest pain TECHNIQUE: Frontal and lateral views of the chest are obtained. FINDINGS: There is no focal air space opacity. No evidence for pneumothorax. No pleural effusion. The cardiac silhouette size is within normal limits. The osseous structures are grossly intact. IMPRESSION: 1. No acute cardiopulmonary process.
--- NOTE | 2023-08-03 16:28 | XR ---
EXAMINATION TYPE: XR humerus RT DATE OF EXAM: 08/03/2023 CLINICAL HISTORY: pain COMPARISON: NONE TECHNIQUE: Frontal and lateral images of the right humerus are obtained. FINDINGS: There is no acute fracture/dislocation evident. The joint spaces appear within normal limi ts. The overlying soft tissue appears unremarkable. IMPRESSION: There is no acute fracture or dislocation.ICD 10 NO FRACTURE, INITIAL EVALUATION
--- NOTE | 2023-08-03 16:29 | XR ---
EXAMINATION TYPE: XR hand complete RT DATE OF EXAM: 08/03/2023 CLINICAL HISTORY: pain TECHNIQUE: Frontal, lateral and oblique images of the right hand are obtained. COMPARISON: None. FINDINGS: There is no acute fracture/dislocation evident. The joint spaces appear within normal limi ts. The overlying soft tissue appears unremarkable. IMPRESSION: There is no acute fracture or dislocation ICD 10 NO FRACTURE, INITIAL EVALUATION
--- NOTE | 2023-08-03 16:33 | XR ---
EXAMINATION TYPE: XR femur RT DATE OF EXAM: 08/03/2023 CLINICAL HISTORY: pain TECHNIQUE: Two views of the right femur are obtained. COMPARISON: None. FINDINGS: There is no acute fracture or dislocation seen of the femur. The hip and knee joints appear within normal limits. The overlying soft tissue appears unremarkable. IMPRESSION: There is no acute fracture or dislocation seen of the femur. ICD 10 NO FRACTURE, INITIAL EVALUATION
[2023-08-03 17:05] VITALS: BP 143/91; PULSE 72
== END 2023-08-03 17:04 | disposition home or self-care (01) ==
LOC: EC 14:26
DX: S40.011A Contusion of right shoulder, initial encounter (principal); S80.01XA Contusion of right knee, initial encounter; J45.909 Unspecified asthma, uncomplicated; I25.2 Old myocardial infarction; M19.90 Unspecified osteoarthritis, unspecified site; F17.200 Nicotine dependence, unspecified, uncomplicated; F12.90 Cannabis use, unspecified, uncomplicated; Z86.59 Personal history of other mental and behavioral disorders; Z88.2 Allergy status to sulfonamides; Z88.0 Allergy status to penicillin; Z91.040 Latex allergy status; Z88.5 Allergy status to narcotic agent; Z88.8 Allergy status to other drugs, medicaments and biological substances; Z91.018 Allergy to other foods; Z79.899 Other long term (current) drug therapy; V43.52XA Car driver injured in collision with other type car in traffic accident, initial encounter
CPT/HCPCS: 70450; 71046; 72125; 99285

== ENCOUNTER 2024-04-14 03:18 | Emergency (ER) | payer OTHER ==
[2024-04-14] MEDS ORDERED: PANTOPRAZOLE 40 MG/10 ML VIAL ONE (04:20)
[2024-04-14] MEDS ORDERED: HYDROmorphone 1 MG/ML 1 ML SYRINGE ONE ×2 (04:20→06:47)
[2024-04-14] MEDS ORDERED: ONDANSETRON 4 MG/2 ML VIAL ONE (04:20)
[2024-04-14] MEDS ORDERED: SODIUM CHLORIDE 0.9% 1,000 ML BAG ONE (04:32)
[2024-04-14] MEDS ORDERED: traMADol 50 MG STARTER PACK 3 TAB BTL ONE (06:47)
[2024-04-14] MEDS ORDERED: ONDANSETRON 4 MG ODT STARTER PACK 2 TAB BTL ONE (06:47)
--- NOTE | 2024-05-30 16:46 | CT ---
EXAM: CT Abdomen and Pelvis With Intravenous Contrast CLINICAL HISTORY: rlq pain x 1week hx of charbel/appy and ablasions TECHNIQUE: Axial computed tomography images of the abdomen and pelvis with intravenous contrast. CTDI is 26.1 mGyand DLP is 1383.8 mGy-cm. This CT exam was performed using one or more of the following dose reduction techniques: automated exposure control, adjustment of the mA and/or kV according to patient size, and/or use of iterative reconstruction technique. COMPARISON: No relevant prior studies available. FINDINGS: Lung bases:No consolidation. Likely atelectasis is seen within the right middle lobe. ABDOMEN: Liver: 1.1 cm hypodense lesion seen within the posterior right lobe liver seen on series 201 image 27. Likely postsurgical mild dilatation of the intrahepatic and extra hepatic biliary system. The liver is enlarged with uniform decreased density consistent with hepatic steatosis. 7.7 mm enhancing nodule seen within the left lobe of liver seen on series 200 image 13. Gallbladder and bile ducts: Status post cholecystectomy. Pancreas:Unremarkable. No mass. No ductal dilation. Spleen: The spleen is enlarged without evidence of mass. Adrenals:Unremarkable. No mass. Kidneys and ureters:Unremarkable. No solid mass. No hydronephrosis. Stomach and bowel:Unremarkable. No obstruction. No mucosal thickening. PELVIS: Appendix:No findings to suggest acute appendicitis. Bladder:Unremarkable. No mass. Reproductive: 3.2 cm hypodense area seen within the anterior right lateral aspect of the uterus. ABDOMEN and PELVIS: Intraperitoneal space:Unremarkable. No free air. No significant fluid collection. Bones/joints:Degenerative changes are seen within the spine and hips. No acute fracture. No dislocation. Soft tissues:Unremarkable. Vasculature:Unremarkable. No abdominal aortic aneurysm. Lymph nodes:Unremarkable. No enlarged lymph nodes. IMPRESSION: 1. Status post cholecystectomy with likely mild postsurgical intra-and extra hepatic biliary dilatation without evidence of choledocholithiasis. 2. Incompletely characterized hepatic lesions which may represent hemangioma. Consider follow-up CT in 3-6 months time or hepatic MRI for further characterization. 3. Abnormal appearance of the uterus, recommend nonemergent outpatient pelvic ultrasound for further evaluation. 4. Otherwise no acute intra-abdominal or pelvic findings. Radiologist: Deon Harman MD Electronically Signed: 04/14/24 05:18 Study first marked ready to read at 05:12, study last marked ready to read at 05:12, initial results transmitted at 05:18 [facility]
== END 2024-04-14 07:00 | disposition home or self-care (01) ==
LOC: EC 03:18
DX: R10.9 Unspecified abdominal pain (principal)
CPT/HCPCS: 74177; 96361; 96374; 96375; 99284

== ENCOUNTER 2024-04-17 11:36 | Emergency (ER) | payer SELFPAY ==
[2024-04-17 11:40] VITALS: RESP 18
--- NOTE | 2024-04-17 12:53 | ED ---
General Adult HPI - General Chief complaint: Abdominal Pain Stated complaint: Abd pain Time Seen by Provider: 04/17/24 12:15 Source: patient Mode of arrival: wheelchair Limitations: no limitations - History of Present Illness Initial comments: Dictation was produced using [email or web address] dictation software. please excuse any grammatical, word or spelling errors. Chief Complaint: 48-year-old female abdominal pain History of Present Illness: Patient is a 48-year-old female presents to the emergency department with acute on chronic abdominal pain patient was seen here in the emergency department recently where she had a CT scan that showed a ruptured ovarian cyst. Patient states that she has constant pain to her pelvic area. States it radiates down her legs. She does complain of nausea. She denies any fevers. The ROS documented in this emergency department record has been reviewed and confirmed by me. Those systems with pertinent positive or negative responses have been documented in the HPI. All other systems are other negative and/or noncontributory. - Related Data Home Medications Medication Instructions Recorded Confirmed HYDROcodone/APAP 7.5-325MG [[place] 1 tab PO Q4H PRN 09/23/21 09/25/21 7.5-325] Previous Rx's Medication Instructions Recorded Aspirin 81 mg PO BID 14 Days #28 tab 09/25/21 Docusate [Colace] 100 mg PO BID 30 Days #60 cap 09/25/21 Ibuprofen [Motrin] 600 mg PO Q6HR PRN #20 tab 08/03/23 oxyCODONE-APAP 10-325MG [Percocet 1 tab PO Q4HR PRN 3 Days #18 tab 04/17/24 10-325 mg] Allergies Allergy/AdvReac Type Severity Reaction Status Date / Time amitriptyline Allergy Hallucinati Verified 04/17/24 11:40 ons amoxicillin Allergy Swelling Verified 04/17/24 11:40 codeine Allergy Swelling Verified 04/17/24 11:40 latex Allergy Rash/Hives Verified 04/17/24 11:40 methadone Allergy Swelling Verified 04/17/24 11:40 morphine Allergy Chest Pain Verified 04/17/24 11:40 Penicillins Allergy Rash/Hives Verified 04/17/24 11:40 pregabalin [From Lyrica] Allergy Rash/Hives Verified 04/17/24 11:40 Sulfa (Sulfonamide Allergy Rash/Hives Verified 04/17/24 11:40 Antibiotics) mushrooms Allergy Anaphylaxis Uncoded 04/17/24 11:40 Review of Systems ROS Statement: Those systems with pertinent positive or pertinent negative responses have been documented in the HPI. ROS Other: All systems not noted in ROS Statement are negative. Past Medical History Past Medical History: Asthma, Cancer, Hyperlipidemia, Myocardial Infarction (NH), Osteoarthritis (OA), Thyroid Disorder Additional Past Medical History / Comment(s): chronic back pain, degenerative disc disease, uses medical marijuana, MIGRAINE HEADACHES , NO MEDS FOR THYROID AT THIS TIME , CERVICAL CANCER, CAST RIGHT FOOT , Last Myocardial Infarction Date:: 2012 History of Any Multi-Drug Resistant Organisms: None Reported Past Surgical History: Appendectomy, Back Surgery, Breast Surgery, Cholecys tectomy, Heart Catheterization, Orthopedic Surgery, Tonsillectomy, Tubal Ligation, Uterine Ablation Additional Past Surgical History / Comment(s): ARTHROSCOPIC RIGHT KNEE X2, 5x ankle surgery to repair breaks Past Anesthesia/Blood Transfusion Reactions: No Reported Reaction Past Psychological History: Anxiety, Depression Smoking Status: Current every day smoker Past Alcohol Use History: None Reported Past Drug Use History: Marijuana - Past Family History Mother Family Medical History: No Reported History General Exam - General Exam Comments Initial Comments: PHYSICAL EXAM: General Impression: Alert and oriented x3, not in acute distress HEENT: Normocephalic atraumatic, extra-ocular movements intact, pupils equal and reactive to light bilaterally, mucous membranes moist. Cardiovascular: Heart regular rate and rhythm Chest: Able to complete full sentences, no retractions, no tachypnea Abdomen: abdomen soft, tenderness to the lower abdomen, non-distended, no organomegaly Musculoskeletal: Pulses present and equal in all extremities, no peripheral edema Motor: no focal deficits noted Neurological: CN II-XII grossly intact, no focal motor or sensory deficits noted Skin: Intact with no visualized rashes Psych: Normal affect and mood Limitations: no limitations Course Vital Signs 04/17/24 04/17/24 11:37 14:54 Temperature 98.1 F Pulse Rate 96 60 Respiratory 18 18 Rate Blood Pressure 145/83 136/92 O2 Sat by Pulse 97 97 Oximetry Medical Decision Making - Medical Decision Making Was pt. sent in by a medical professional or institution (, PA, RESIDENTIAL MORTGAGE UNDERWRITER, urgent care, hospital, or residential...) When possible be specific @ -No Did you speak to anyone other than the patient for history (EMS, parent, family, police, friend...)? What history was obtained from this source @ -No Did you review nursing and triage notes (agree or disagree)? Why? @ -I reviewed and agree with nursing and triage notes Were old charts reviewed (outside hosp., previous admission, EMS record, old EKG, old radiological studies, urgent care reports/EKG's, residential records)? Report findings @ -No old charts were reviewed Differential Diagnosis (chest pain, altered mental status, abdominal pain women, abdominal pain men, vaginal bleeding, musculoskeletal, weakness, fever, dyspnea, syncope, headache, dizziness, GI bleed, back pain, seizure, CVA, palpatations, mental health)? @ -Differential Abdominal Pain Women: Appendicitis, Cholecystitis, diverticulosis, ischemic bowel, pancreatitis, hepatitis, UTI, gastroenteritis, AAA, incarcerated hernia, bowel obstruction, constipation, inflammatory bowel, hepatitis, peptic ulcer disease, splenic infarction, perforated viscus, vulvitis, ovarian torsion, PID, kidney stone, placenta abruption, this is not meant to be an all-inclusive list EKG interpreted by me (3pts min.). @ -None done X-rays interpreted by me (1pt min.). @ -X-ray shows no acute processes. CT interpreted by me (1pt min.). @ -None done U/S interpreted by me (1pt. min.). @ -Vaginal ultrasound shows thickened endometrium What testing was considered but not performed or refused? (CT, X-rays, U/S, labs)? Why? @ -None What meds were considered but not given or refused? Why? @ -None Was smoking cessation discussed for >3mins.? @ -No Were there social determinants of health that impacted care today? How? (Homelessness, low income, unemployed, alcoholism, drug addiction, transportation, low edu. Level, literacy, decrease access to med. care, [place] [facility], rehab)? @ -No Was there de-escalation of care discussed even if they declined (Discuss DNR or withdrawal of care, Hospice)? DNR status @ -No What co-morbidities impacted this encounter? (DM, HTN, Smoking, COPD, CAD, Cancer, CVA, ARF, Chemo, Hep., AIDS, mental health diagnosis, sleep apnea, morbid obesity)? @ -None Was patient admitted / discharged? Hospital course, mention meds given and route , prescriptions, significant lab abnormalities, going to OR and other pertinent info. @ -48-year-old female presents to the emergency department with pelvic pain. Vital signs upon arrival are within acceptable limits. Patient tender to the lower abdomen. Laboratory evaluation obtained. Labs unremarkable. Urinalysis negative. Transvaginal ultrasound was obtained showing thickened endometrium. Given that patient is postmenopausal she is concerned of u malignancy. Abdominal x-ray is negative. Patient is given analgesics. Case discussed with Dr. Jimenes for outpatient follow-up. Patient of her workup and will follow-up with Dr. Jimnees this week. Prescription for [place] Did you discuss the management of the patient with other professionals (professionals i.e. , PA, RESIDENTIAL MORTGAGE UNDERWRITER, lab, RT, psych nurse, sr. social media & mobile manager, manager bridge, teacher, finance officer, immigration case manager)? Give summary @ -See above Was critical care preformed (if so, how long)? @ -No Undiagnosed new problem with uncertain prognosis? @ -No Drug Therapy requiring intensive monitoring for toxicity (Heparin, Nitro, Insulin, Cardizem)? @ -No Were any procedures done? @ -No Diagnosis/symptom? Acute, or Chronic, or Acute on Chronic? Uncomplicated (without systemic symptoms) or Complicated (systemic symptoms)? @ -Pelvic pain Side effects of treatment? @ -No Exacerbation, Progression, or Severe Exacerbation? @ -No Poses a threat to life or bodily function? How? (Chest pain, [place], NH, pneumonia, PE, COPD, DKA, ARF, appy, cholecystitis, CVA, Diverticulitis, Homicidal, Suicidal, threat to staff... and all critical care pts) @ -yes - Lab Data Result diagrams: 04/17/24 13:24 04/17/24 13:24 Lab Results 04/17/24 04/17/24 04/17/24 Range/Units 13:24 13:24 13:46 WBC 7.3 (3.8-10.6) k/uL RBC 4.48 (3.80-5.40) m/uL Hgb 15.8 (11.4-16.0) gm/dL Hct 46.4 H (34.0-46.0) % MCV 103.6 H (80.0-100.0) fL MCH 35.3 H (25.0-35.0) pg MCHC 34.0 (31.0-37.0) g/dL RDW 13.9 (11.5-15.5) % Plt Count 142 L (150-450) k/uL MPV 10.2 Neutrophils % 68 % Lymphocytes % 23 % Monocytes % 6 % Eosinophils % 2 % Basophils % 0 % Neutrophils # 4.9 (1.3-7.7) k/uL Lymphocytes # 1.6 (1.0-4.8) k/uL Monocytes # 0.5 (0-1.0) k/uL Eosinophils # 0.2 (0-0.7) k/uL Basophils # 0.0 (0-0.2) k/uL Macrocytosis Slight Sodium 138 (137-145) mmol/L Potassium 4.1 (3.5-5.1) mmol/L Chloride 107 (98-107) mmol/L Carbon Dioxide 25 (22-30) mmol/L Anion Gap 6 mmol/L BUN 11 (7-17) mg/dL Creatinine 0.62 (0.52-1.04) mg/dL Est GFR (CKD-EPI)AfAm >90 (>60 ml/min/1.73 sqM) Est GFR (CKD-EPI)NonAf >90 (>60 ml/min/1.73 sqM) Glucose 98 (74-99) mg/dL Calcium 9.7 (8.4-10.2) mg/dL Total Bilirubin 0.9 (0.2-1.3) mg/dL AST 28 (14-36) U/L ALT 20 (4-34) U/L Alkaline Phosphatase 70 (38-126) U/L Total Protein 7.1 (6.3-8.2) g/dL Albumin 4.6 (3.5-5.0) g/dL Lipase 64 (23-300) U/L Urine Color Colorless Urine Appearance Clear (Clear) Urine pH 7.0 (5.0-8.0) Ur Specific [place] 1.005 (1.001-1.035) Urine Protein Negative (Negative) Urine Glucose (UA) Negative (Negative) Urine Ketones 1+ H (Negative) Urine Blood Negative (Negative) Urine Nitrite Negative (Negative) Urine Bilirubin Negative (Negative) Urine Urobilinogen <2.0 (<2.0) mg/dL Ur Leukocyte Esterase Negative (Negative) Disposition Clinical Impression: Pelvic pain Disposition: HOME SELF-CARE Condition: Fair Instructions (If sedation given, give patient instructions): Pelvic Pain in Women (ED) Additional Instructions: There was findings of thickened endometrium on your transvaginal ultrasound suspicion of malignancy. It is important that you follow-up with Dr. Jimenes. Prescriptions: oxyCODONE-APAP 10-325MG [Percocet 10-325 mg] 1 tab PO Q4HR PRN 3 Days #18 tab PRN Reason: Pain Is patient prescribed a controlled substance at d/c from ED?: Yes If prescribed controlled substance>3 days was MAPS reviewed?: Prescribed <3 Days Referrals: Maria L Jimenes DO [Doctor of Osteopathic Medicine] - 1-2 days Time of Disposition: 15:33
[2024-04-17] MEDS: HYDROmorphone 1 MG/ML 1 ML SYRINGE IVP STA ×2 (13:20→15:44)
[2024-04-17] MEDS: SODIUM CHLORIDE 0.9% 1,000 ML IV STA (13:21)
[2024-04-17 13:34] LABS: Basophils % (A) 0 %; Eosinophils # (A) 0.2 k/uL (0-0.7); Eosinophils % (A) 2 %; HCT 46.4 % (34.0-46.0); HGB 15.8 gm/dL (11.4-16.0); Lymphocytes # (A) 1.6 k/uL (1.0-4.8); Lymphocytes % (A) 23 %; MCH 35.3 pg (25.0-35.0); MCV 103.6 fL (80.0-100.0); Macrocytosis Slight; Mean Platelet Volume 10.2; Monocytes # (A) 0.5 k/uL (0-1.0); Monocytes % (A) 6 %; Neutrophils # (A) 4.9 k/uL (1.3-7.7); Neutrophils % (A) 68 %; Platelet Count 142 k/uL (150-450); RBC 4.48 m/uL (3.80-5.40); RDW 13.9 % (11.5-15.5); WBC 7.3 k/uL (3.8-10.6)
--- NOTE | 2024-04-17 13:40 | XR ---
EXAMINATION TYPE: XR abdomen 1V DATE OF EXAM: 04/17/2024 1:36 PM CLINICAL INDICATION: Female, 48 years old with history of lower abdominal pain; [facility] COMPARISON: Same day CT head. TECHNIQUE: One radiographic view of the abdomen was obtained. FINDINGS: The bowel gas pattern is nonspecific without dilated loops of small or large bowel. . Fecal material and gas are demonstrated throughout the colon and rectum. Right upper quadrant: Discectomy clips. There is no evidence for organomegaly or pneumoperitoneum. The osseous structures are intact. No ab normal calcifications are present. IMPRESSION: Nonspecific bowel gas pattern without radiographic evidence for acute process.
[2024-04-17 13:46] LABS: ALT 20 U/L (4-34); AST 28 U/L (14-36); African American GFR (CKD) >90 (>60 ml/min/1.73 sqM); Albumin 4.6 g/dL (3.5-5.0); Alkaline Phosphatase 70 U/L (38-126); Anion Gap 6 mmol/L; Blood Urea Nitrogen 11 mg/dL (7-17); Calcium 9.7 mg/dL (8.4-10.2); Carbon Dioxide 25 mmol/L (22-30); Chloride 107 mmol/L (98-107); Glucose 98 mg/dL (74-99); Lipase 64 U/L (23-300); Non-African American GFR(CKD) >90 (>60 ml/min/1.73 sqM); Potassium 4.1 mmol/L (3.5-5.1); Sodium 138 mmol/L (137-145); Total Bilirubin 0.9 mg/dL (0.2-1.3); Total Protein 7.1 g/dL (6.3-8.2)
[2024-04-17 13:54] LABS: Appearance,Urine Clear (Clear); Bilirubin,Urine Negative (Negative); Blood,Urine Negative (Negative); Color,Urine Colorless; Glucose,Urine (UA) Negative (Negative); Ketones,Urine 1+ (Negative); Leukocyte Esterase,Urine Negative (Negative); Nitrite,Urine Negative (Negative); Protein,Urine Negative (Negative); Specific Gravity,Urine 1.005 (1.001-1.035); Urobilinogen,Urine <2.0 mg/dL (<2.0)
--- NOTE | 2024-04-17 14:45 | US ---
EXAMINATION TYPE: US transvaginal DATE OF EXAM: 04/17/2024 COMPARISON: CT: 04/14/24 CLINICAL INDICATION: Female, 48 years old with history of lower abdominal pain; lower abdominal pain. . LMP period over 14 years ago. Hx of tubal ligation, ablation, and a procedure involving the ce rvix TECHNIQUE: Transvaginal (TV). Date of LMP: 14 years ago EXAM MEASUREMENTS: Uterus: 5.6 x 3.6 x 3.2 cm Endometrial Stripe: 1.9 cm Right Ovary: Not seen due to excessive bowel gas Left Ovary: 2.2 x 1.7 x 1.5 cm 1. Uterus: Anteverted cystic area seen on lt side of ut measuring 1.5 x 1.5 x 1.6cm 2. Endometrium: Endo appears thickened and complex, no vascularity 3. Right Ovary: Not seen due to bowel gas 4. Left Ovary: Dominant follicle seen Spectral, color and waveform doppler imaging shows good arterial and venous flow within the ovaries ; there is no evidence for ovarian torsion. 5. Bilateral Adnexa: Excessive bowel gas seen 6. Posterior cul-de-sac: Trace amount of free fluid IMPRESSION: 1. Thickened complex endometrium. Given patient's last menstrual was Over 14 years ago further evalu ation of the endometrium to exclude malignancy recommended. 2. The right ovary is not visualized.
[2024-04-17 15:59] VITALS: BP 147/91; PULSE 76; TEMP 98.7
== END 2024-04-17 15:55 | disposition home or self-care (01) ==
LOC: EC 11:36
DX: R10.9 Unspecified abdominal pain
CPT/HCPCS: 36415; 74018; 76830; 80053; 81003; 83690; 85025; 93976; 96374; 96375; 99284

== ENCOUNTER → 2024-04-27 | Outpatient (CLI) | payer OTHER ==
[2024-04-27 18:13] LABS: Basophils # (A) 0.04 X 10*3/uL (0.00-0.10); Basophils % (A) 0.4 %; Eosinophils % (A) 2.1 %; HCT 45.8 % (37.2-46.3); HGB 15.2 g/dL (12.0-15.0); Lymphocytes # (A) 2.96 X 10*3/uL (0.90-5.00); Lymphocytes % (A) 31.4 %; MCH 34.2 pg (27.0-32.0); MCHC 33.2 g/dL (32.0-37.0); MCV 102.9 FL (80.0-97.0); Mean Platelet Volume 12.6 FL (9.5-12.2); Monocytes # (A) 0.82 X 10*3/uL (0.20-1.00); Monocytes % (A) 8.7 %; NRBC Per 100 WBC 0 X 10*3/uL (0.00-0.01); Neutrophils # (A) 5.38 X 10*3/uL (1.80-7.70); Neutrophils % (A) 57.1 %; Platelet Count 159 X 10*3/uL (140-440); RBC 4.45 X 10*6/uL (4.10-5.20); RDW 13.6 % (11.5-14.5); WBC 9.43 X 10*3/uL (4.50-10.00)
[2024-04-27 19:04] LABS: Blood Urea Nitrogen 12.1 mg/dL (9.0-27.0); Carbon Dioxide 24.7 mmol/L (21.6-31.8); Chloride 105 mmol/L (96-109); Glucose 77 mg/dL (70-110); Sodium 141 mmol/L (135-145)
== END | disposition home or self-care (01) ==
LOC: LABPAT 13:37
PROVIDERS: ATTEND Obstetrics & Gynecology
DX: Z01.812 Encounter for preprocedural laboratory examination (principal)
CPT/HCPCS: 80051; 82565; 82947; 84520; 85025; 86850; 86900; 86901; 87086

== ENCOUNTER 2024-05-03 05:44 | Day surgery (SDC) | payer OTHER ==
[2024-04-27 12:44] VITALS: BMI 31.4
[~2024-05-03 05:44] MED LIST changes: -DEXAMETHASONE SOD PHOSPHATE 4 MG/ML 1 ML VIAL IV ONE; -LACTATED RINGERS 1,000 ML IV SCH; +LIDOCAINE 1% (10MG/ML) FOR IV START INTRADERMA PRN; -MIDAZOLAM 2 MG/2 ML VIAL IV PRN; -ONDANSETRON 4 MG/2 ML VIAL IVP ONE; -SCOPOLAMINE 1.5MG/72HR PATCH TRANSDERM ONE; -fentaNYL (PF) 50 MCG/ML 2 ML AMP IV PRN
[2024-05-03] MEDS: IV FLUID CONTINUATION 1,000 ML IV ONE (06:33)
[2024-05-03] MEDS: LACTATED RINGERS 1,000 ML IV SCH (06:48)
[2024-05-03] MEDS: DEXAMETHASONE SOD PHOSPHATE 4 MG/ML 1 ML VIAL IV ONE (06:49)
[2024-05-03] MEDS: ONDANSETRON 4 MG/2 ML VIAL IVP ONE (06:49)
[2024-05-03] MEDS: IPRATROPIUM-ALBUTEROL 3 ML NEB INHALATION ONE (07:14)
--- NOTE | 2024-05-03 07:20 | P.HPOB ---
History of Present Illness H&P Date: 05/03/24 Chief Complaint: pelvic pain 48 year old presents for robotic assisted laparoscopic vaginal hysterectomy bilateral salpingectomy using da panchito and diagnostic cystoscopy, possible SORAIDA BSO. She has been suffering with post endometrial ablation syndrom for 2 years and it worsened significantly in the last few weeks. Review of Systems All systems: negative Constitutional: Denies chills, Denies fever Eyes: denies blurred vision, denies pain Ears, nose, mouth and throat: Denies headache, Denies sore throat Cardiovascular: Denies chest pain, Denies shortness of breath Respiratory: Denies cough Gastrointestinal: Denies abdominal pain, Denies diarrhea, Denies nausea, Denies vomiting Genitourinary: Denies dysuria, Denies hematuria Musculoskeletal: Denies myalgias Integumentary: Denies pruritus, Denies rash Neurological: Denies numbness, Denies weakness Psychiatric: Denies anxiety, Denies depression Endocrine: Denies fatigue, Denies weight change Past Medical History Past Medical History: Asthma, Cancer, Hyperlipidemia, Myocardial Infarction (ID), Osteoarthritis (OA), Thyroid Disorder Additional Past Medical History / Comment(s): chronic back pain, degenerative disc disease, uses medical marijuana, MIGRAINE HEADACHES , NO MEDS FOR THYROID AT THIS TIME , CERVICAL CANCER, Last Myocardial Infarction Date:: 2012 History of Any Multi-Drug Resistant Organisms: None Reported Past Surgical History: Appendectomy, Back Surgery, Breast Surgery, Cholecystectomy, Heart Catheterization, Orthopedic Surgery, Tonsillectomy, Tubal Ligation, Uterine Ablation Additional Past Surgical History / Comment(s): ARTHROSCOPIC RIGHT KNEE X2, 5x ankle surgery to repair breaks, ORIF RT ANKLE Past Anesthesia/Blood Transfusion Reactions: No Reported Reaction Smoking Status: Current every day smoker - Past Family History Mother Family Medical History: No Reported History Medications and Allergies Home Medications Medication Instructions Recorded Confirmed Type oxyCODONE-APAP 10-325MG [Percocet 1 tab PO Q4HR PRN 3 Days #18 tab 04/17/24 05/03/24 Rx 10-325 mg] Allergies Allergy/AdvReac Type Severity Reaction Status Date / Time amitriptyline Allergy Hallucinati Verified 05/03/24 06:12 ons amoxicillin Allergy Swelling Verified 05/03/24 06:12 codeine Allergy Swelling Verified 05/03/24 06:12 latex Allergy Rash/Hives Verified 05/03/24 06:12 methadone Allergy Swelling Verified 05/03/24 06:12 morphine Allergy Chest Pain Verified 05/03/24 06:12 Penicillins Allergy Rash/Hives Verified 05/03/24 06:12 pregabalin [From Lyrica] Allergy Rash/Hives Verified 05/03/24 06:12 Sulfa (Sulfonamide Allergy Rash/Hives Verified 05/03/24 06:12 Antibiotics) mushrooms Allergy Anaphylaxis Uncoded 05/03/24 06:12 Exam Osteopathic Statement: *. No significant issues noted on an osteopathic structural exam other than those noted in the History and Physical/Consult. Vital Signs Temp Pulse Resp BP Pulse Ox 05/03/24 06:20 97.8 F 73 15 138/79 95 Intake and Output 05/02/24 05/03/24 05/03/24 22:59 06:59 14:59 Other: Weight 88.9 kg HEart: RRR Lungs: CTAB ABdomen: soft, nontender Extremetries: neg cheryl's Assessment and Plan (1) Post endometrial ablation syndrome Current Visit: Yes Status: Acute Code(s): N99.85 - POST ENDOMETRIAL ABLATION SYNDROME SNOMED Code(s): 106446527 (2) Pelvic pain Current Visit: No Status: Acute Code(s): R10.2 - PELVIC AND PERINEAL PAIN SNOMED Code(s): 82949303 Plan: 1. RALVH BS using da panchito, diagnostic cystoscopy and possible SORAIDA BSO
[2024-05-03] MEDS ORDERED: LIDOCAINE 1% INJ 10MG/ML (20 ML MDV) ONE (07:22)
[2024-05-03] MEDS ORDERED: GLYCOPYRROLATE 0.2 MG/ML 2 ML VIAL ONE (07:22)
[2024-05-03] MEDS ORDERED: SUCCINYLCHOLINE CHLORIDE 200 MG/10 ML VIAL IV ONE (07:22)
[2024-05-03] MEDS ORDERED: KETAMINE HCL IN 0.9 % NACL 50 MG/5 ML SYRINGE ONE (07:22)
[2024-05-03] MEDS ORDERED: NEOSTIGMINE 1 MG/ML 10 ML VIAL ONE (07:22)
[2024-05-03] MEDS ORDERED: ROCURONIUM 10 MG/ML (5 ML VIAL) IV ONE (07:22)
[2024-05-03] MEDS ORDERED: MIDAZOLAM 2 MG/2 ML VIAL ONE (07:22)
[2024-05-03] MEDS ORDERED: fentaNYL (PF) 50 MCG/ML 2 ML AMP ONE (07:22)
[2024-05-03] MEDS ORDERED: PHENYLEPHRINE 10 MG/ML VIAL ONE (07:22)
[2024-05-03] MEDS ORDERED: PROPOFOL 10 MG/ML 20 ML VIAL IV ONE (07:22)
[2024-05-03] MEDS: BUPIVACAINE (PF) 0.25% 30 ML VIAL SQ ONE (08:26)
[2024-05-03] MEDS: LACTATED RINGERS 1,000 ML IV ONE (08:34)
[2024-05-03] MEDS: droPERidol 5 MG/2 ML VIAL IVP ONE (09:01)
--- NOTE | 2024-05-03 09:03 | P.OP ---
Date of Procedure: 05/03/24 Preoperative Diagnosis: 1. post endometrial ablation syndrome 2. pelvic pain Postoperative Diagnosis: same Procedure(s) Performed: Robotic-assisted laparoscopic vaginal hysterectomy with bilateral salpingectomy using da Dino and diagnostic cystoscopy Anesthesia: ANNA Surgeon: Maria L Jimenes Powersaw Supervisor #1: Robin Gómez Estimated Blood Loss (ml): 10 IV fluids (ml): 700 Urine output (ml): 100 Pathology: other (uterus, cervix, bilateral fallopian tubes) Condition: stable Disposition: PACU Operative Findings: normal appearing uterus, tubes and ovaries Description of Procedure: Patient taken the operating room where general anesthesia was obtained without difficulty. She is prepped and draped in normal sterile fashion dorsal lithotomy position, legs placed in the Giovanny stirrups. Weighted speculum placed in the vagina and the anterior lip the cervix was grasped with single-tooth tenaculum. The uterus sounded to 8 cm and the cervix diameter was 4 cm. The appropriate manipulator tip and ring were placed on the Veronika manipulator. The Veronika manipulator was then placed in the uterus. Sparks catheter was also placed. Attention was then turned to the abdomen and gloves were changed. A 5 mm supraumbilical incision was made the scalpel and a 5 mm optical trocar was placed under direct visualization. 10 cm to the right of this and 2 cm down a 5 mm incision was made and 8 mm da Dino port was placed under direct visualization. Same measurements on the opposite side of the patient's abdomen, the 5 mm incision was made and 8 mm da Dino port was placed under direct visualization. In the left upper quadrant a 10 mm incision was made and a 10 mm optical trocar was placed under direct visualization. The 5 mm optical trocar was then replaced with the 8 mm da Dino camera port. The robot was docked on patient's right side. The camera was introduced and then the monopolar curved scissor and vessel sealer placed under direct visualization. I broke scrub and went to the physician console. The left mesosalpinx was cut and sealed using the vessel sealer. The left fallopian tube was then removed through the nursing home assistant administrator port. The left round ligament was sealed and cut using the vessel sealer. The posterior leaf of the broad ligament was taken down using the monopolar curved scissors. Anterior leaf of the broad ligament was then taken down using the monopolar curved scissors. The uterine artery wassealed and cut using the vessel sealer. The bladder flap was then started using the monopolar curved scissors. Attention was then turned to the right side of the patient's anatomy and the right mesosalpinx sealed and cut using the vessel sealer. The right round ligament was csealed and cut using the vessel sealer. Posterior leaf of the broad ligament was taken down using the monopolar curved scissors and the anterior leaf was taken down using the monopolar curved scissors. The uterine artery was sealed and cut using the vessel sealer. The bladder flap was then finished on this side. Anterior colpotomy was made using the monopolar curved scissors. The rest of the uterus was from the vaginal cuff by following the ring around with the monopolar curved scissors through the uterosacral ligaments back to the anterior portion. Once the uterus and cervix were amputated they were pulled through the vaginal cuff. Hemostasis was assured. The instruments were changed for the Cardier forcep and the alice suture cut. The vaginal cuff was then closed using 2-O stratafix barbed suture in a running fashion. Hemostasis was again assured and the pelvis was irrigated. All instruments were removed from the abdomen and the robot was undocked. I scrubbed back in to perform a cystoscopy. There were jets from both ureteral orifices. The abdominal incisions were closed with 4-0 Vicryl in a subcuticular fashion. Patient tolerated the procedure well, sponge and instrument counts correct 2 and she was taken to recovery room in stable condition condition
[2024-05-03] MEDS: fentaNYL (PF) 50 MCG/ML 2 ML AMP IV PRN (09:34)
[2024-05-03] MEDS ORDERED: SIMETHICONE 80 MG CHEWABLE PO PRN (10:50)
[2024-05-03] MEDS ORDERED: ONDANSETRON 4 MG/2 ML VIAL IVP PRN (10:50)
[2024-05-03] MEDS: KETOROLAC 15 MG/ML 1 ML VIAL IVP PRN (12:02)
[2024-05-03 16:49] VITALS: RESP 16
[2024-05-03] MEDS: SENNOSIDES-DOCUSATE SODIUM 1 EACH TAB PO SCH (20:10)
[2024-05-04 04:31] LABS: Basophils % (A) 0 %; Eosinophils # (A) 0.1 k/uL (0-0.7); Eosinophils % (A) 1 %; Lymphocytes # (A) 1.8 k/uL (1.0-4.8); Lymphocytes % (A) 16 %; MCH 33.5 pg (25.0-35.0); MCHC 31.7 g/dL (31.0-37.0); MCV 105.6 fL (80.0-100.0); Macrocytosis Moderate; Mean Platelet Volume 10.7; Monocytes # (A) 0.8 k/uL (0-1.0); Monocytes % (A) 7 %; Neutrophils # (A) 8.6 k/uL (1.3-7.7); Neutrophils % (A) 75 %; Platelet Count 156 k/uL (150-450); RBC 4.16 m/uL (3.80-5.40); RDW 13.3 % (11.5-15.5); WBC 11.4 k/uL (3.8-10.6)
--- NOTE | 2024-05-04 08:18 | P.DS ---
Providers Date of admission: 05/03/24 Expected date of discharge: 05/04/24 Attending physician: Maria L Jimenes Primary care physician: Angelica Cyrumar - Discharge Diagnosis(es) (1) Post endometrial ablation syndrome Current Visit: Yes Status: Resolved (2) Pelvic pain Current Visit: No Status: Resolved (3) Status post robot-assisted surgical procedure hysterectomy Current Visit: Yes Status: Acute Hospital Course: Presented for robotic-assisted laparoscopic vaginal hysterectomy using da Dino. She underwent this procedure without complication. Postoperatively her incisions are clean, dry, intact though bruised. She denies nausea, vomiting, chest pain, shortness breath or calf pain. Her pain has improved since before the surgery. Patient will be discharged home postoperative day #1 in stable co ndition to follow-up with me in 3 weeks. Plan - Discharge Summary Discharge Rx Participant: Yes New Discharge Prescriptions: No Action oxyCODONE-APAP 10-325MG [Percocet 10-325 mg] 1 tab PO Q4HR PRN 3 Days #18 tab PRN Reason: Pain Discharge Medication List oxyCODONE-APAP 10-325MG [Percocet 10-325 mg] 1 tab PO Q4HR PRN 3 Days #18 tab 04/17/24 [Rx] Follow up Appointment(s)/Referral(s): Maria L Jimenes DO [Doctor of Osteopathic Medicine] - 3 Weeks Discharge Disposition: HOME SELF-CARE
[2024-05-04] MEDS: SCOPOLAMINE 1 MG/72 HR PATCH TRANSDERM ONE (08:49)
[2024-05-04 10:12] VITALS: BP 144/90; PULSE 80; TEMP 97.7
== END 2024-05-04 16:00 | disposition home or self-care (01) ==
LOC: OR 05:44 → 4FBP 08:45 → OR 05-04 16:00
PROVIDERS: ATTEND Obstetrics & Gynecology
DX: N99.85 Post endometrial ablation syndrome (principal); N72 Inflammatory disease of cervix uteri; N83.8 Other noninflammatory disorders of ovary, fallopian tube and broad ligament; N94.89 Other specified conditions associated with female genital organs and menstrual cycle; N88.8 Other specified noninflammatory disorders of cervix uteri; E78.5 Hyperlipidemia, unspecified; G89.29 Other chronic pain; I25.2 Old myocardial infarction; J45.909 Unspecified asthma, uncomplicated; M19.90 Unspecified osteoarthritis, unspecified site; F17.200 Nicotine dependence, unspecified, uncomplicated; Z88.0 Allergy status to penicillin; Z88.1 Allergy status to other antibiotic agents; Z88.2 Allergy status to sulfonamides; Z90.49 Acquired absence of other specified parts of digestive tract; Z91.040 Latex allergy status; Z98.51 Tubal ligation status; Z79.899 Other long term (current) drug therapy
CPT/HCPCS: 81025; 85025; 88307

== ENCOUNTER → 2024-07-06 | Outpatient (CLI) | payer OTHER ==
--- NOTE | 2024-07-06 10:49 | XR ---
EXAMINATION TYPE: XR cervical spine comp DATE OF EXAM: 07/06/2024 9:26 AM COMPARISON: 07/08/2020. CLINICAL INDICATION: Female, 49 years old with history of M54.2 CERVICALGIA M25.511 PAIN IN RIGHT EDSON ULDER; [facility] TECHNIQUE: The cervical spine was imaged in frontal, lateral, odontoid and bilateral oblique. FINDINGS: The osseous structures show normal alignment without evidence of an acute fracture. There are osteoph ytes noted throughout the cervical spine on the anterior and lateral aspects of the vertebral bodies. The intervertebral disk spaces are narrowed at multiple levels. Pedicles are intact. Soft tissues a re within normal limits. The odontoid appears intact. IMPRESSION: 1. No fracture or dislocation. 2. Mild degenerative disc disease changes of the cervical spine. [facility], , 07/06/2024 10:47 AM
--- NOTE | 2024-07-06 10:51 | XR ---
EXAMINATION TYPE: XR shoulder complete RT DATE OF EXAM: 07/06/2024 9:26 AM COMPARISON: 08/03/2023. CLINICAL INDICATION: Female, 49 years old with history of M54.2 CERVICALGIA M25.511 PAIN IN RIGHT EDSON ULDER; [facility] TECHNIQUE: XR shoulder complete RT; examined in AP, internally rotated and scapular Y projections. FINDINGS: No evidence of acute osseous pathology, joint dislocation, or soft tissue swelling. The remaining po rtions of the visualized chest are unremarkable. Degeneration changes of the acromion, distal clavic le with osteophyte formation. There is osteophyte formation of the glenoid and humeral head. There is joint space narrowing of glenohumeral joint. IMPRESSION: 1. No acute osseous pathology. 2. Mild shoulder osteoarthrosis. [facility], , 07/06/2024 10:48 AM
== END | disposition home or self-care (01) ==
LOC: RADXRMAIN 08:53
PROVIDERS: ATTEND Family Medicine
DX: M19.011 Primary osteoarthritis, right shoulder (principal); M50.30 Other cervical disc degeneration, unspecified cervical region
CPT/HCPCS: 72050